=== PATIENT | male | born 1990 | race African-American/Black ===

== ENCOUNTER 2019-07-29 17:23 | Emergency (ER) | payer SELFPAY ==
[2019-07-29] MEDS ORDERED: ACETAMINOPHEN 325 MG TABLET PO ONE (18:03)
[2019-07-29] MEDS ORDERED: IBUPROFEN 600 MG TABLET PO ONE (18:03)
[2019-07-29] MEDS ORDERED: ONDANSETRON 4 MG TAB.RAPDIS PO ONE (18:03)
[2019-07-29 18:37] LABS: A TYPE INFLUENZA AG NEGATIVE (NEGATIVE); B INFLUENZA AG NEGATIVE (NEGATIVE)
--- NOTE | 2019-07-29 19:12 | ER Document Report ---
HPI - HPI Time Seen by Provider: 07/29/19 17:52 Pain Level: 3 Context: Patient is a 28 year old male who presents to the ED with nausea, body aches, and rhinorrhea. Patient states that he was at work today and he was sent home due to vomiting. Denies any past medical history. Does not take any medications. - CONSTITUTIONAL Constitutional: DENIES: Fever, Chills - EENT EENT: REPORTS: Nasal Drainage-Clear, Congestion. DENIES: Sore Throat, Ear Pain, Nasal Drainage-Purulent, Eye problems - NEURO Neurology: REPORTS: Headache - RESPIRATORY Respiratory: DENIES: Trouble Breathing, Coughing - GASTROINTESTINAL Gastrointestinal: REPORTS: Nausea. DENIES: Patient vomiting - MUSCULOSKELETAL Musculoskeletal: REPORTS: Extremity pain - DERM Skin Color: Normal Skin Problems: None Past Medical History - General Information source: Patient - Social History Smoking Status: Unknown if Ever Smoked Family History: Reviewed & Not Pertinent Patient has suicidal ideation: No Patient has homicidal ideation: No Vertical Provider Document - CONSTITUTIONAL Agree With Documented VS: Yes Exam Limitations: No Limitations General Appearance: No Apparent Distress - INFECTION CONTROL TRAVEL OUTSIDE OF THE [place] IN LAST 30 DAYS: No - HEENT HEENT: Atraumatic, Normocephalic, PERRLA Notes: clear rhinorrhea noted; edema and erythema noted to nasal mucosa - NECK Neck: Normal Inspection - RESPIRATORY Respiratory: Breath Sounds Normal, No Respiratory Distress - CARDIOVASCULAR Cardiovascular: Regular Rate, Regular Rhythm Pulses: Normal: Radial - GI/ABDOMEN Gastrointestinal: Abdomen Soft, Abdomen Non-Tender - MUSCULOSKELETAL/EXTREMETIES Musculoskeletal/Extremeties: FROM - NEURO Level of Consciousness: Awake, Alert, Appropriate Motor/Sensory: No Motor Deficit, No Sensory Deficit - DERM Integumentary: Warm, Dry, No Rash Course - Re-evaluation Re-evalutation: 07/29/19 19:12 Presentation is most consistent with a viral upper respiratory infection. Patient is overall well appearance, vitals within normal limits, well-hydrated. Patient denies any headache, neck pain, and has no evidence of meningismus on examination. Lungs are clear bilaterally. No evidence of respiratory distress. Based on clinical exam and history, I do not suspect an acute pneumonia, meningitis, strep pharyngitis, or an acute encephalitis. Influenza test is negative, but his daughter is positive. He most likely has the flu. Will discharge patient with return precautions and followup recommendations. They are in agreement this plan have verbalized understanding return precautions. - Vital Signs Vital signs: Temp Pulse Resp BP Pulse Ox 99.1 F 100 20 117/66 98 07/29/19 17:36 07/29/19 17:36 07/29/19 17:36 07/29/19 17:36 07/29/19 17:36 Discharge - Discharge Clinical Impression: Flu-like symptoms Condition: Stable Disposition: HOME, SELF-CARE Instructions: Influenza ([facility]) [id number] Additional Instructions: You were seen today in the emergency department for a cough. You most likely have the flu, as your daughter has the flu. Please take acetaminophen 1000 mg and ibuprofen 600 mg every 6 hours as needed for any body aches or fever. You have been given cetirizine, medication to help with your runny nose. Take 1 tablet every day while you have symptoms. You have also been given Flonase, medication to help with the inflammation in your nose. Place 1 spray to each nostril twice a day. If you develop a fever greater than 100.4 F while on ibuprofen and acetaminophen, develop shortness of breath, difficulty breathing, or any symptoms that are worrisome to you, please return to the emergency department. Please follow-up with a primary care provider once you get insurance. Prescriptions: Cetirizine HCl [All Day Allergy] 10 mg PO DAILY #30 tablet Fluticasone Propionate [Flonase Nasal Martin 50 Mcg/Martin 16 gm] 2 sprays NASL DAILY #1 inhaler Ondansetron [Zofran Odt 4 mg Tablet] 1 - 2 tab PO Q4H PRN #20 tab.rapdis PRN Reason: For Nausea/Vomiting Forms: Return to Work
[2019-07-29 19:46] VITALS: BP 114/69
== END 2019-07-29 19:46 | disposition home or self-care (01) ==
LOC: ER 17:23
DX: J11.1 Influenza due to unidentified influenza virus with other respiratory manifestations (principal); R11.0 Nausea; M79.10 Myalgia, unspecified site; J34.89 Other specified disorders of nose and nasal sinuses; R09.89 Other specified symptoms and signs involving the circulatory and respiratory systems; R09.81 Nasal congestion
CPT/HCPCS: 99283; 87804; S0119

== ENCOUNTER 2019-09-08 00:25 | Emergency (ER) | payer SELFPAY ==
[2019-09-08 00:37] VITALS: BP 126/85
[2019-09-08] MEDS ORDERED: IBUPROFEN 800 MG TABLET PO ONE (00:37)
[2019-09-08] MEDS ORDERED: PENICILLIN V POTASSIUM 500 MG TABLET PO ONE (00:57)
[2019-09-08] MEDS ORDERED: OXYCODONE-ACETAMINOPHEN 5-325 MG TABLET PO ONE (00:57)
--- NOTE | 2019-09-08 00:58 | ER Document Report ---
HPI - HPI Time Seen by Provider: 09/08/19 00:47 Pain Level: 5 Notes: 28-year-old male patient presenting to the emergency department chief complaint of dental pain. Patient reports pain started about 3 days ago. Patient reports pain to the left upper side of his mouth. Patient denies any fevers, denies any drainage from the area. - CONSTITUTIONAL Constitutional: DENIES: Fever, Chills - EENT EENT: DENIES: Sore Throat, Ear Pain, Eye problems - NEURO Neurology: DENIES: Headache, Weakness, Vision blurred, Dizzinesss / Vertigo - CARDIOVASCULAR Cardiovascular: DENIES: Chest pain - RESPIRATORY Respiratory: DENIES: Trouble Breathing, Coughing - GASTROINTESTINAL Gastrointestinal: DENIES: Abdominal Pain, Black / Bloody Stools - URINARY Urinary: DENIES: Dysuria, Urgency, Frequency - MUSCULOSKELETAL Musculoskeletal: DENIES: Extremity pain Past Medical History - General Information source: Patient - Social History Smoking Status: Never Smoker Chew tobacco use (# tins/day): No Frequency of alcohol use: None Drug Abuse: None Family History: Reviewed & Not Pertinent Patient has suicidal ideation: No Patient has homicidal ideation: No - Medical History Medical History: Negative Surgical Hx: Negative Vertical Provider Document - CONSTITUTIONAL Notes: PHYSICAL EXAMINATION: GENERAL: Well-appearing, well-nourished and in no acute distress. HEAD: Atraumatic, normocephalic. EYES: Pupils equal round extraocular movements intact, conjunctiva are normal. ENT: Nares patent, 13 and 14, no obvious drainable abscess. No evidence of Ludewig's angina, no trismus. NECK: Normal range of motion LUNGS: No respiratory distress Musculoskeletal: Normal range of motion NEUROLOGICAL: Normal speech, normal gait. PSYCH: Normal mood, normal affect. SKIN: Warm, Dry, normal turgor, no rashes or lesions noted. Erythema surrounding tooth number - INFECTION CONTROL TRAVEL OUTSIDE OF THE U.[place]. IN LAST 30 DAYS: No Course - Re-evaluation Re-evalutation: Presentation is most consistent with likely an infected tooth. Airway is patent. Vitals within normal limits. Patient is able swallow without any difficulty. There is no significant facial swelling. No evidence of Jordan angina, apical abscess, or airway obstruction. Patient will be started on antibiotics. I've instructed to follow-up with dentistry as earliest ability for definitive management. At this time will discharge with return precautions and follow-up recommendations. Verbal discharge instructions given a the bedside and opportunity for questions given. Medication warnings reviewed. Patient is in agreement with this plan and has verbalized understanding of return precautions and the need for primary care follow-up in the next 24-72 hours. - Vital Signs Vital signs: Temp Pulse Resp BP Pulse Ox 98.6 F 76 18 126/85 H 97 09/08/19 00:36 09/08/19 00:36 09/08/19 00:36 09/08/19 00:36 09/08/19 00:36 Discharge - Discharge Clinical Impression: Pain, dental Condition: Stable Disposition: HOME, SELF-CARE Additional Instructions: You have been seen for dental pain. It is very important that you follow-up with a dentist for definitive care. Please return if you develop fever greater than 101, swelling in your face, vomiting, difficulty breathing or swallowing, or any other symptoms that are concerning to you. For pain you should take ibuprofen 800 mg every 8 hours as needed. [facility] [phone] Prescriptions: Penicillin V Potassium [Penicillin Vk 500 mg Tablet] 500 mg PO BID #20 tablet
== END 2019-09-08 01:09 | disposition home or self-care (01) ==
LOC: ER 00:25
DX: K08.9 Disorder of teeth and supporting structures, unspecified (principal)
CPT/HCPCS: 99282

== ENCOUNTER 2019-09-18 22:12 | Emergency (ER) | payer SELFPAY ==
[2019-09-18] MEDS ORDERED: CLINDAMYCIN HCL 150 MG CAPSULE PO ONE (22:22)
[2019-09-18] MEDS ORDERED: TRAMADOL HCL 50 MG TABLET PO ONE (22:22)
[2019-09-18 22:25] VITALS: BP 136/69
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
== END 2019-09-18 22:35 | disposition home or self-care (01) ==
LOC: ER 22:12
DX: K04.7 Periapical abscess without sinus (principal); K08.89 Other specified disorders of teeth and supporting structures; E11.9 Type 2 diabetes mellitus without complications
CPT/HCPCS: 82962; 99283

== ENCOUNTER 2019-10-22 19:11 | Emergency (ER) | payer SELFPAY ==
[2019-10-22 19:23] VITALS: BP 143/85
[2019-10-22] MEDS ORDERED: LIDOCAINE 2% VISCOUS SOLN 15 ML UDCUP PO ONE (20:34)
[2019-10-22] MEDS ORDERED: IBUPROFEN 800 MG TABLET PO ONE (20:34)
[2019-10-22] MEDS ORDERED: CLINDAMYCIN HCL 150 MG CAPSULE PO ONE (20:34)
--- NOTE | 2019-10-22 20:39 | ER Document Report ---
ED Oral Problem - General Chief Complaint: Toothache Stated Complaint: mouth pain Time Seen by Provider: 10/22/19 20:33 Mode of Arrival: Ambulatory Information source: Patient Notes: 28-year-old male presented to ED for dental pain and he cannot get into see a dentist due to the coronal pandemic. He states he had some tramadol at home and he took one today and it did not help. He states he knows he needs antibiotics again. He was seen previously for the same tooth and made an appointment with a dentist but was not able to keep the appointment. Patient is alert oriented respirations regular nonlabored speaking in full sentences. TRAVEL OUTSIDE OF THE [place] IN LAST 30 DAYS: No - HPI Patient complains to provider of: Toothache Onset: Other - Several days Onset: Gradual Quality of pain: Sharp, Throbbing Severity: Severe Pain Level: 5 Associated symptoms: Facial pain, Toothache Worsened by: Cold Relieved by: Warm Similar symptoms previously: Yes Recently seen / treated by doctor/dentist: No - Related Data Allergies/Adverse Reactions: No Known Allergies Allergy (Unverified 10/22/19 20:20) Home Medications: TRAMADOL Past Medical History - General Information source: Patient - Social History Smoking Status: Never Smoker Frequency of alcohol use: None Drug Abuse: None Family History: Reviewed & Not Pertinent Patient has homicidal ideation: No - Past Medical History Cardiac Medical History: Reports: None Pulmonary Medical History: Reports: None EENT Medical History: Reports: None Neurological Medical History: Reports: None Endocrine Medical History: Reports: None Renal/ Medical History: Reports: None Malignancy Medical History: Reports None GI Medical History: Reports: None Musculoskeletal Medical History: Reports None Skin Medical History: Reports None Psychiatric Medical History: Reports: None Traumatic Medical History: Reports: None Infectious Medical History: Reports: None Surgical Hx: Negative Past Surgical History: Reports: None Review of Systems - Review of Systems Constitutional: No symptoms reported EENT: Mouth pain, Dental problem Cardiovascular: No symptoms reported Respiratory: No symptoms reported Gastrointestinal: No symptoms reported Genitourinary: No symptoms reported Male Genitourinary: No symptoms reported Musculoskeletal: No symptoms reported Skin: No symptoms reported Hematologic/Lymphatic: No symptoms reported Neurological/Psychological: No symptoms reported -: Yes All other systems reviewed and negative Physical Exam - Vital signs Vitals: Temp Pulse Resp BP Pulse Ox 98.6 F 74 16 143/85 H 98 10/22/19 19:22 10/22/19 19:22 10/22/19 19:22 10/22/19 19:22 10/22/19 19:22 Interpretation: Normal - General General appearance: Appears well, Alert - HEENT Head: Normocephalic, Atraumatic Eyes: Normal Pupils: PERRL Ears: Normal External canal: Normal Tympanic membrane: Normal Sinus: Normal Nasal: Normal Mouth/Lips: Caries Mucous membranes: Normal Teeth diagram: 1 - Dental pain and swelling around the tooth #14. He is been in here previously taken medications for tooth #4 and 5 Pharynx: Normal Neck: Normal - Respiratory Respiratory status: No respiratory distress Chest status: Nontender Breath sounds: Normal Chest palpation: Normal - Cardiovascular Rhythm: Regular Heart sounds: Normal auscultation Murmur: No - Abdominal Inspection: Normal Distension: No distension Bowel sounds: Normal Tenderness: Nontender Organomegaly: No organomegaly - Back Back: Normal, Nontender - Extremities General upper extremity: Normal inspection, Nontender, Normal color, Normal ROM, Normal temperature General lower extremity: Normal inspection, Nontender, Normal color, Normal ROM, Normal temperature, Normal weight bearing. No: Yesica's sign - Neurological Neuro grossly intact: Yes Cognition: Normal Orientation: AAOx4 Armstrong Coma Scale Eye Opening: Spontaneous Rene Coma Scale Verbal: Oriented Rene Coma Scale Motor: Obeys Commands Rene Coma Scale Total: 15 Speech: Normal Motor strength normal: LUE, RUE, LLE, RLE Sensory: Normal - Psychological Associated symptoms: Normal affect, Normal mood - Skin Skin Temperature: Warm Skin Moisture: Dry Skin Color: Normal Course - Re-evaluation Re-evalutation: 10/23/19 00:23 Presentation is most consistent with likely an infected tooth. Airway is patent. Vitals within normal limits. Patient is able swallow without any difficulty. There is no significant facial swelling. No evidence of Jordan angina, apical abscess, or airway obstruction. Patient will be started on antib iotics. I've instructed to follow-up with dentistry as earliest ability for definitive management. At this time will discharge with return precautions and follow-up recommendations. Verbal discharge instructions given a the bedside and opportunity for questions given. Medication warnings reviewed. Patient is in agreement with this plan and has verbalized understanding of return precautions and the need for primary care follow-up in the next 24-72 hours. - Vital Signs Vital signs: Temp Pulse Resp BP Pulse Ox 98.6 F 74 16 143/85 H 98 10/22/19 20:18 10/22/19 19:22 10/22/19 19:22 10/22/19 19:22 10/22/19 19:22 Discharge - Discharge Clinical Impression: Pain due to dental caries Condition: Stable Disposition: HOME, SELF-CARE Additional Instructions: TOOTHACHE: Your pain is due to dental decay. The tooth must be repaired in order for you to feel better. You will, therefore, be referred to a dentist. We do not have dentists on the staff at [facility]. Severe swelling or drainage around a tooth usually means a dental abscess. This also requires evaluation and treatment by the dentist, but antibiotics may be prescribed while awaiting dental treatment. You should be rechecked immediately if you develop major swelling of the face, increasing pain, a lump in the jaw or gums, headache, difficulty swallowing, or fever. Ibuprofen Ibuprofen is an excellent, safe drug for pain control. In addition, it has potent antiinflammatory effects which are beneficial, especially in the treatment of injuries, arthritis, or tendonitis. It's best to take ibuprofen with food. Persons with ulcer disease or allergy to aspirin should notify their physician of this before taking ibuprofen. Take the medication exactly as prescribed. Don't take additional doses unless instructed to do so by your doctor. If you develop wheezing, shortness of breath, hives, faintness, stomach pain, vomiting, or dark black stools, return for re-evaluation at once. CLINDAMYCIN: You have been given a prescription for the antibiotic clindamycin. It is often prescribed for infections in the mouth, such as dental infections or absce sses, and for skin infections due to MRSA. It's important that you take all the medication, unless instructed otherwise by your physician. Failure to complete the entire course can result in relapse of your condition. Common side effects of antibiotics include nausea, intestinal cramping, or diarrhea. Women may develop vaginal yeast infections, and babies can get yeast (thrush) in the mouth following the use of antibiotics. Contact your physician if you develop significant side effects from this medication. Allergy to this antibiotic can result in hives, wheezing, faintness, or i tching. If symptoms of allergy occur, stop the medication and call the doctor. You were given a syringe of viscous lidocaine. Please place small amount of this lidocaine on your finger and rub it to the gums and the tooth for pain control. You can also usual ibuprofen for pain control. Please do not use the viscous lidocaine more often than every 4 hours or will denatured the skin on your gums and cause more pain. FOLLOW-UP CARE: You have been referred for follow-up care to the dentists listed below. Call the dentists office for an appointment as you were instructed or within the next two days. If you experience worsening or a significant change in your symptoms, notify the physician immediately or return to the Emergency Department at any time for re-evaluation. [facility] [address] [place] [address] [facility] [place] [address] [facility] [address] [facility] Emergency Department [facility] [address] [email or web address] [address] [place] [address] Monday- 8:00am to 5:00 pm Will see patients from other [facility]. Charges based on income and family size and accepts Medicare, Medicaid, and Insurances Will pull molars [facility] [id number] Hours of Operation 8:00 am - 4:30 pm weekdays The following dental offices accept Medicaid: [facility] Dr. Cameron Dr. Lehman Dr. Ronquillo Dr. Odonnell Levon Hoffman [place], and [place] [facility] Dr. Gutierrez ([place]) Dr. Driscoll ([place]) [facility] Drs. Mccullough ([place]) Dr. Smith ([place]) [facility] Emergency Department Dental [facility] Dr. Luciano ([place]) Drs. Olsen and ([place]) Medicaid Care Line Prescriptions: Clindamycin HCl 300 mg PO Q6 #28 capsule Forms: Elevated Blood Pressure
== END 2019-10-22 20:47 | disposition home or self-care (01) ==
LOC: ER 19:11
DX: K02.9 Dental caries, unspecified (principal); K08.89 Other specified disorders of teeth and supporting structures; Z79.899 Other long term (current) drug therapy
CPT/HCPCS: 99282; J3490

== ENCOUNTER 2019-11-20 19:02 | Emergency (ER) | payer SELFPAY ==
--- NOTE | 2019-11-20 19:47 | ER Document Report ---
HPI - HPI Patient complains to provider of: Dental pain Time Seen by Provider: 11/20/19 19:34 Pain Level: 4 Context: 29-year-old male with no previous medical problems presents to the emergency room with persistent right upper dental pain that he has had for the past month. He has multiple visits to the emergency room for the same pain. States he is unable to see a dentist secondary to cost. Has not been taking any medications for his pain. No trauma no injury. Recently treated with clindamycin a month ago. Denies fevers. No nausea, no vomiting. States is painful to chew but is able to tolerate p.o. food and fluids without difficulty. No other concerns Associated Symptoms: None Exacerbated by: Food Relieved by: Denies Similar symptoms previously: Yes Recently seen / treated by doctor: No - ROS Systems Reviewed and Negative: Yes All other systems reviewed and negative - EENT EENT: DENIES: Sore Throat, Ear Pain, Nasal Drainage-Clear, Congestion Notes: Dental pain - NEURO Neurology: DENIES: Headache - GASTROINTESTINAL Gastrointestinal: DENIES: Abdominal Pain, Nausea, Patient vomiting - REPRODUCTIVE Reproductive: DENIES: : - DERM Skin Color: Normal, Fowler Skin Problems: None Past Medical History - General Information source: Patient - Social History Smoking Status: Former Smoker Frequency of alcohol use: None Drug Abuse: None Family History: Reviewed & Not Pertinent Patient has homicidal ideation: No Vertical Provider Document - CONSTITUTIONAL Agree With Documented VS: Yes Exam Limitations: No Limitations General Appearance: Mild Distress - INFECTION CONTROL TRAVEL OUTSIDE OF THE [place] IN LAST 30 DAYS: No - HEENT HEENT: Atraumatic, Normocephalic. negative: Pharyngeal Exudate, Pharyngeal Erythema Notes: There is a nonfluctuant abscess noted on the exterior right upper gumline. It is erythematous and tender to palpation but no active discharge or draining noted. - NECK Neck: Normal Inspection, Supple. negative: Lymphadenopathy-Left, Lymphadenopathy-Right - RESPIRATORY Respiratory: Breath Sounds Normal, No Respiratory Distress, Chest Non-Tender. negative: Rales, Rhonchi, Wheezing - CARDIOVASCULAR Cardiovascular: Regular Rate, Regular Rhythm, No Murmur - MUSCULOSKELETAL/EXTREMETIES Musculoskeletal/Extremeties: FROM, Non-Tender - NEURO Level of Consciousness: Awake, Alert, Appropriate Motor/Sensory: No Motor Deficit, No Sensory Deficit - DERM Integumentary: Warm, Dry, No Rash Course - Re-evaluation Re-evalutation: 11/20/19 19:44 Patient has had multiple visits to the emergency room for his ongoing dental pain and abscesses. Patient was counseled on importance to follow-up with a dentist as soon as possible for his recurrent abscesses. Tylenol and or Motrin as needed for pain. Patient has received clindamycin during his last 3 visits will switch to penicillin. Patient was given strict return to the emergency room guidelines. Return for any new or worsening symptoms. All questions were answered. Patient verbalized understanding and agrees with plan of care. - Vital Signs Vital signs: Temp Pulse Resp BP Pulse Ox 75.8 F L 83 16 124/73 97 11/20/19 19:32 11/20/19 19:14 11/20/19 19:14 11/20/19 19:14 11/20/19 19:14 Discharge - Discharge Clinical Impression: Chronic dental pain, Dental abscess Condition: Stable Disposition: HOME, SELF-CARE Instructions: Abscess ([facility]), [facility], Penicillin V K ([facility]), Toothache ([facility]) Additional Instructions: You have been seen for dental pain. It is very important that you follow-up with a dentist for definitive care. Please return if you develop fever greater than 101, swelling in your face, vomiting, difficulty breathing or swallowing, or any other symptoms that are concerning to you. For pain you should take ibuprofen 600 mg every 6 hours as needed. Antibiotics as prescribed. Prescriptions: Penicillin V Potassium [Penicillin Vk 500 mg Tablet] 500 mg PO QID #40 tablet
[2019-11-20 19:57] VITALS: BP 127/68
== END 2019-11-20 19:55 | disposition home or self-care (01) ==
LOC: ER 19:02
DX: K04.7 Periapical abscess without sinus (principal); K08.89 Other specified disorders of teeth and supporting structures; G89.29 Other chronic pain; Z87.891 Personal history of nicotine dependence
CPT/HCPCS: 99282

== ENCOUNTER 2019-11-26 19:40 | Emergency (ER) | payer OTHER ==
[2019-11-26] MEDS ORDERED: METHOCARBAMOL 750 MG TABLET PO ONE (21:34)
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
[2019-11-26 23:20] VITALS: BP 123/70
== END 2019-11-26 23:24 | disposition home or self-care (01) ==
LOC: ER 19:40
DX: M54.41 Lumbago with sciatica, right side (principal); V49.40XA Driver injured in collision with unspecified motor vehicles in traffic accident, initial encounter; M62.830 Muscle spasm of back; Z18.10 Retained metal fragments, unspecified; F12.10 Cannabis abuse, uncomplicated
CPT/HCPCS: 99283; 73502; 72110; 72070; J3490

== ENCOUNTER 2019-12-14 11:12 | Emergency (ER) | payer OTHER ==
--- NOTE | 2019-12-14 12:24 | RADIOLOGY REPORT (SQ) ---
EXAM DESCRIPTION: CHEST SINGLE VIEW IMAGES COMPLETED DATE/TIME: 12/14/2019 12:16 pm REASON FOR STUDY: CHEST PAIN COMPARISON: None. EXAM PARAMETERS: NUMBER OF VIEWS: One view. TECHNIQUE: Single frontal radiographic view of the chest acquired. RADIATION DOSE: NA LIMITATIONS: None. FINDINGS: LUNGS AND PLEURA: No opacities, masses or pneumothorax. No pleural effusion. MEDIASTINUM AND HILAR STRUCTURES: No masses. Contour normal. HEART AND VASCULAR STRUCTURES: Heart normal in size. Normal vasculature. BONES: No acute findings. HARDWARE: None in the chest. OTHER: No other significant finding. IMPRESSION: NO ACUTE RADIOGRAPHIC FINDING IN THE CHEST. TECHNICAL DOCUMENTATION: JOB ID: [id number] 2010 [employer] All Rights Reserved Reading location - IP/workstation name: [email or web address]
[2019-12-14 12:26] LABS: ABSOLUTE EOSINOPHILS # (AUTO) 0.1 10^3/uL (0.0-0.6); ABSOLUTE LYMPHOCYTES (AUTO) 1.6 10^3/uL (0.5-4.7); ABSOLUTE MONOCYTES (AUTO) 0.2 10^3/uL (0.1-1.4); ABSOLUTE NEUT (AUTO) 4.1 10^3/uL (1.7-8.2); BASOPHILS % (AUTO) 0.3 % (0-2); HEMATOCRIT 39.7 % (37.9-51.0); HEMOGLOBIN 13.5 g/dL (13.5-17.0); LYMPHOCYTES % (AUTO) 26.7 % (13-45); MEAN CORPUSCULAR HEMOGLOBIN 28.9 pg (27.0-33.4); MEAN CORPUSCULAR VOLUME 85 fl (80-97); PLATELET COUNT 176 10^3/uL (150-450); RED BLOOD COUNT 4.66 10^6/uL (4.35-5.55); RED CELL DISTRIBUTION WIDTH 13.8 % (11.5-14.0); TOTAL CELLS COUNTED % (AUTO) 100 %; WHITE BLOOD COUNT 5.9 10^3/uL (4.0-10.5)
[2019-12-14 12:32] LABS: ALBUMIN 4.5 g/dL (3.5-5.0); ALKALINE PHOSPHATASE 49 U/L (38-126); ASPARTATE AMINO TRANSFERASE 33 U/L (17-59); BILIRUBIN,TOTAL 0.3 mg/dL (0.2-1.3); BLOOD UREA NITROGEN 13 mg/dL (7-20); CALCIUM 9.6 mg/dL (8.4-10.2); CARBON DIOXIDE 30 mmol/L (22-30); CHLORIDE 104 mmol/L (98-107); GLUCOSE 98 mg/dL (75-110); POTASSIUM 4.3 mmol/L (3.6-5.0); TOTAL PROTEIN 7.4 g/dL (6.3-8.2)
[2019-12-14 12:41] LABS: ANION GAP 4 (5-19)
[2019-12-14] MEDS ORDERED: NORMAL SALINE 1000 ML 1,000 ML IV ONE (12:42)
[2019-12-14] MEDS ORDERED: KETOROLAC TROMETHAMINE INJ/PF 30 MG/1 ML SDV IV ONE (12:43)
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
[2019-12-14 13:46] VITALS: BP 119/70
--- NOTE | 2019-12-14 16:12 | EKG REPORT ---
SEVERITY:- ABNORMAL ECG - SINUS RHYTHM ST ELEVATION SUGGESTS PERICARDITIS : Confirmed by: Giovanni Hensley MD 14-Dec-2019 16:11:43
== END 2019-12-14 13:50 | disposition home or self-care (01) ==
LOC: ER 11:12
DX: R07.89 Other chest pain (principal); R51 Headache; R42 Dizziness and giddiness; E11.9 Type 2 diabetes mellitus without complications; Z82.49 Family history of ischemic heart disease and other diseases of the circulatory system
CPT/HCPCS: 93005; 99284; 96361; 96374; 36415; 85025; 80053; 84484; 71045; 93010; J1885; J7030